=== PATIENT | male | born 1985 | race Hispanic/Latino ===

== ENCOUNTER 2017-09-07 18:53 | Emergency (ER) | payer SELFPAY ==
[~2017-09-07] VITALS: Ht 167.6 cm; Wt 91.2 kg
[2017-09-07] MEDS ORDERED: KETOROLAC TROMETHAMINE 30 MG/ML VIAL IV STA (19:25)
[2017-09-07] MEDS ORDERED: PROMETHAZINE 25MG/ NS 50ML (IV) IV ONE (19:30)
[2017-09-07] MEDS ORDERED: LEVOFLOXACIN 750MG/DEXTROSE PREMIX BAG 150ML IV ONE (20:00)
[2017-09-07] MEDS ORDERED: MORPHINE SULFATE 4 MG/ML SYR IV ONE (20:00)
[2017-09-07] MEDS ORDERED: LEVOFLOXACIN 750MG/D5W 150ML 150 ML IV ONE (20:15)
[2017-09-07] MEDS ORDERED: KETOROLAC TROME10 MG PO (20:31)
[2017-09-07] MEDS ORDERED: ZOFRAN ODT4 MG SL (20:31)
[2017-09-07] MEDS ORDERED: PROMETHAZINE HC25 M1 PO (20:31)
[2017-09-07] MEDS ORDERED: TYLENOL WITH C1 EACH PO (20:31)
[2017-09-07] MEDS ORDERED: LEVAQUIN500 MG PO (20:31)
[2017-09-07 21:17] VITALS: BP 135/73
== END 2017-09-07 21:19 | disposition home or self-care (01) ==
LOC: FSED 18:53
DX: R30.0 Dysuria (principal); N20.1 Calculus of ureter; N10 Acute pyelonephritis
CPT/HCPCS: 87086; 96365; 96375; 99283; J1885; J2270; J2550